=== PATIENT | male | born 1995 | race Two or more races ===

== ENCOUNTER 2019-01-04 20:50 | Emergency (ER) | payer BC, MEDICAID ==
[~2019-01-04] VITALS: Ht 180.3 cm; Wt 53.1 kg
[2019-01-04 21:00] VITALS: BP 118/71
[2019-01-04] MEDS ORDERED: AUGMENTIN 875-1 EAC1 ORAL (21:28)
[2019-01-04] MEDS ORDERED: IBUPROFEN600 MG ORAL (21:28)
--- NOTE | 2019-01-04 21:28 | Emergency Room Report ---
History of Present Illness General Chief Complaint: Sore Throat Source: Patient Present Illness [facility] This is a 23-year-old male with no past medical history. He presents with chief complaint of sore throat. Onset today. Worse with swallowing. No nausea no vomiting. No fever chills. Pain is 9 out of 10. Denies any other complaint. Allergies: Coded Allergies: No Known Allergies (Unverified , 01/04/19) Patient History Past Medical History: none, see triage record, old chart reviewed Past Surgical History: none Pertinent Family History: none Social History: Denies: smoking Immunizations: other Reviewed Nursing Documentation: PMH: Agreed; PSxH: Agreed Nursing Documentation-PMH Past Medical History: No Stated History Review of Systems Eye: Denies: eye pain, blurred vision ENT: Reports: throat pain; Denies: ear pain, nose congestion, throat swelling Respiratory: Denies: cough, shortness of breath Cardiovascular: Denies: chest pain, palpitations Gastrointestinal: Denies: abdominal pain, diarrhea, nausea, vomiting Musculoskeletal: Denies: back pain, joint pain Skin: Denies: rash Neurological: Denies: headache, numbness Endocrine: Denies: increased thirst, increased urine Hematologic/Lymphatic: Denies: easy bruising All Other Systems: negative except mentioned in HPI Physical Exam Vital Signs Date Time Temp Pulse Resp B/P (MAP) Pulse Ox O2 Delivery O2 Flow Rate FiO2 01/04/19 20:53 99.9 86 18 118/71 (87) 99 Room Air Vitals with low-grade fever Sp02 EP Interpretation: reviewed, normal General Appearance: well appearing, no apparent distress, alert Head: normocephalic, atraumatic Eyes: bilateral eye PERRL, bilateral eye EOMI ENT: hearing grossly normal, tonsillar swelling, pharyngeal erythema Neck: full range of motion, supple, no meningismus Respiratory: chest non-tender, lungs clear, normal breath sounds Cardiovascular #1: regular rate, rhythm, no murmur Gastrointestinal: normal bowel sounds, non tender, no mass, no organomegaly, no bruit, non-distended Musculoskeletal: back normal, gait/station normal, normal range of motion Psychiatric: mood/affect normal Medical Decision Making Diagnostic Impression: Primary Impression: Pharyngitis, acute Qualified Codes: J02.9 - Acute pharyngitis, unspecified ER Course Patient with a pharyngitis with low-grade fever. No other URI symptoms. This may be strep. He has no evidence of peritonsillar abscess, retropharyngeal abscess or Yovani angina. Will discharge home. Last Vital Signs Date Time Temp Pulse Resp B/P (MAP) Pulse Ox O2 Delivery O2 Flow Rate FiO2 01/04/19 20:53 99.9 86 18 118/71 (87) 99 Room Air Status: improved Disposition: HOME, SELF-CARE Condition: Stable Scripts Ibuprofen* (MOTRIN*) 600 Mg Tablet 600 MG ORAL THREE TIMES A DAY, #30 TAB 0 Refills Prov: Faustino Aguilera MD 01/04/19 Amoxicillin/Potassium Clav 875-125* (AUGMENTIN 875-125 TABLET*) 1 Each Tablet 1 TAB ORAL TWICE A DAY, #14 TAB Prov: Faustino Aguilera MD 01/04/19 Patient Instructions: Strep Throat Additional Instructions: Increase fluids. Salt water gargle. Follow-up with your doctor in 7 days. Return if worse. Faustino Aguilera MD Jan 04, 2019 21:28
[2019-01-04 21:38] VITALS: BP 110/86
== END 2019-01-04 23:23 | disposition home or self-care (01) ==
LOC: EMR 21:30
DX: J02.9 Acute pharyngitis, unspecified (principal)
CPT/HCPCS: 99282